=== PATIENT | female | born 1960 | race Caucasian/White ===

== ENCOUNTER → 2021-03-23 | Outpatient (CLI) | payer BC, OTHER ==
[~2021-03-23] MED LIST: ATORVASTATIN CA10 MG PO; DIAZEPAM5 MG PO; FERROUS SULFAT325 MG PO; HYDROCHLOROTH12.5 MG PO; IBU800 MG PO; LEVOTHYROXINE100 MCG PO; PROTONIX40 MG PO; SERTRALINE HCL50 MG PO; VIT C PO
== END ==
LOC: EXRD 10:38
DX: Z11.1 Encounter for screening for respiratory tuberculosis (principal)
CPT/HCPCS: 71046